=== PATIENT | male | born 1990 | race Caucasian/White ===

== ENCOUNTER → 2020-08-16 12:38 | Outpatient (BNVA) | payer OTHER, SELFPAY | PROVIDERS: Family Provider Family Medicine; Visit Provider Nurse Practitioner | DX: N34.2 Other urethritis (principal) | CPT/HCPCS: 81000; 87491; 87591 ==

== ENCOUNTER → 2022-02-11 10:49 | Outpatient (BNVA) | payer OTHER, SELFPAY | PROVIDERS: Family Provider Family Medicine; PCP Family Medicine; Visit Provider Family Medicine | DX: Z00.00 Encounter for general adult medical examination without abnormal findings (principal); Z51.81 Encounter for therapeutic drug level monitoring; Z13.220 Encounter for screening for lipoid disorders | CPT/HCPCS: 80053; 80061; 85025 ==

== ENCOUNTER → 2022-02-13 14:49 | Outpatient (BNVA) | payer OTHER, SELFPAY | PROVIDERS: Family Provider Family Medicine; PCP Family Medicine; Visit Provider Emergency Medicine | DX: K92.1 Melena (principal) | CPT/HCPCS: 82270; G0328 ==

== ENCOUNTER 2022-03-08 06:14 | Day surgery (SDC) | payer OTHER, SELFPAY ==
[2022-03-06 13:13] VITALS: BMI 25.9
[2022-03-08] MEDS: sodium chloride 0.9% 1,000 ML 30 ML IV (06:37)
[2022-03-08 06:41] VITALS: BP 138/88; PULSE 66; RESP 18; TEMP 36.3; O2SAT 97
--- NOTE | 2022-03-08 07:05 | ANES.PREANE2 ---
Pre-Anesthetic Assessment Height/Weight: Height 1.85 m Weight 89.358 kg Temp Pulse Resp BP Pulse Ox O2 Del Method 97.3 F L 66 18 138/88 97 03/08/22 06:41 03/08/22 06:41 03/08/22 06:41 03/08/22 06:41 03/08/22 06:41 03/08/22 06:41 Preop Diagnosis: Abd pain Operation Date: 03/08/22 07:30 Proposed Procedures p 68668 EGD 25799 Colon R10.9,K52.9(Not Applicable) - Wyatt Mcnair DO s Colonoscopy(Not Applicable) - Wyatt Mcnair DO Was Beta Shaun taken within 24 hours: N/A Was Clonidine taken within 24 hours: N/A Last intake: Intake Last Liquid Date 03/07/22 Last Liquid Time 22:00 Last Solid Date 03/06/22 Social No alcohol Vaps Exam alert, oriented x 3, clear to auscultation bilaterally and regular rate & rhythm Airway Submandibular: within normal limits Cervical ROM: within normal limits Mallampati: Class II Dentition: full History/ROS No significant history except as noted and No significant complaints Pulmonary None reported CV/HEM None reported None reported Hepatic None reported GI None reported Metabolic None reported Musc/skel None reported Neuropsych Anxiety Anesthetic Plan ASA status: 2 Anesthesia: Anesthesia Evaluation and MAC Risk of > 500 ml blood loss (7ml/kg in children): No Medications/Allergies Home Medications Medication Instructions Recorded Confirmed Last Taken Type No Known Home Medications 03/07/22 03/07/22 Unknown History Allergies Allergy/AdvReac Type Severity Reaction Status Date / Time No Known Allergies Allergy Verified 03/08/22 06:35 Current Medications Generic Name Dose Route Start Last Admin Trade Name Freq PRN Reason Stop Dose Admin Sodium Chloride 1,000 mls @ 30 mls/hr 03/08/22 06:30 03/08/22 06:37 Sodium Chloride 0.9% IV 03/09/22 06:29 30 mls/hr .Q24H MARCELINO Administration PFSH Anesthesia Surgical History H/O knee surgery Meniscus tear Social History Smoking and tobacco status: current every day smoker (Vapes) smokeless tobacco Smokeless tobacco user: other Smokeless tobacco details: Vape Alcohol intake: current Alcohol intake frequency: holidays/special occasions only Current occupation: [employer] Data Anesthesia Cardiac Studies: No Data to Display
--- NOTE | 2022-03-08 07:35 | W.PM.OPSUD ---
Surgery/Procedure H&P Update DATE OF PROCEDURE: March 08, 2022 DATE H&P PERFORMED: 02/19/22 PREOP DIAGNOSIS: Abd pain PLANNED PROCEDURE: Operation Date: 03/08/22 07:30 Proposed Procedures p 11773 EGD 26428 Colon R10.9,K52.9(Not Applicable) - DO meeta Morales Colonoscopy(Not Applicable) - Wyatt Mcnair DO
[2022-03-08 08:07] VITALS: BP 96/53; PULSE 68; RESP 16; TEMP 36.2; O2SAT 94
[2022-03-08 08:21] VITALS: BP 127/79; PULSE 72; RESP 16; O2SAT 96
--- NOTE | 2022-03-08 14:18 | ANE.PACU2 ---
Inpatient post-anesthesia follow up: Airway intact: Yes Vital signs: Temperature 97.1 F Pulse Rate 72 Respiratory Rate 16 Blood Pressure 127/79 Pulse Oximetry 96 Oxygen Delivery Me thod Room Air Oxygen Flow Rate Fraction of Inspir ed Oxygen Hydration adequate: Yes Nausea and vomiting: No Pain level: 1 Mental status: Baseline
== END 2022-03-08 08:40 | disposition home or self-care (01) ==
PROVIDERS: PCP Family Medicine; Visit Provider Surgery
PROC: 0DJ08ZZ Inspection of Upper Intestinal Tract, Via Natural or Artificial Opening Endoscopic (ICD-10-PCS; CPT 43235; principal; 2022-03-08 07:30)
PROC: 0DJD8ZZ Inspection of Lower Intestinal Tract, Via Natural or Artificial Opening Endoscopic (ICD-10-PCS; CPT 45378; 2022-03-08 07:30)
DX: K52.9 Noninfective gastroenteritis and colitis, unspecified (principal); R10.9 Unspecified abdominal pain; K29.80 Duodenitis without bleeding; K29.50 Unspecified chronic gastritis without bleeding; B96.81 Helicobacter pylori [H. pylori] as the cause of diseases classified elsewhere; F17.210 Nicotine dependence, cigarettes, uncomplicated
CPT/HCPCS: 43239; 45380; 82274; 83630; 87493; 87506; 88305; 88342; J2704; J7030

== ENCOUNTER → 2022-06-28 09:53 | Outpatient (BNVA) | payer OTHER, SELFPAY | PROVIDERS: PCP Family Medicine; Visit Provider Family Medicine | DX: Z00.00 Encounter for general adult medical examination without abnormal findings (principal); D17.9 Benign lipomatous neoplasm, unspecified; K52.9 Noninfective gastroenteritis and colitis, unspecified; R10.9 Unspecified abdominal pain | CPT/HCPCS: 80053; 83690; 85025; 86140 ==

== ENCOUNTER 2022-09-15 05:49 | Emergency (ER) | payer OTHER, SELFPAY ==
[2022-09-15 06:01] VITALS: BP 127/90; PULSE 61; RESP 16; TEMP 36.4; O2SAT 100; BMI 25.7
[2022-09-15] MEDS: lidocaine 2% viscous 15 ML, aluminum-mag hydrox-simethicon 30 ML, sucralfate oral liq 1 GM PO (06:23)
--- NOTE | 2022-09-15 06:34 | USR_ITS ---
PROCEDURE INFORMATION: Exam: US Abdomen, Limited; Right Upper Quadrant Exam date and time: 09/15/2022 6:40 AM Age: 32 years old Clinical indication: Abdominal pain; Acute TECHNIQUE: Imaging protocol: Real time ultrasound of the abdomen with image documentation. Limited exam focused on the right upper quadrant. COMPARISON: No relevant prior studies available. FINDINGS: Liver: Unremarkable liver, no focal abnormality. Gallbladder: There are several shadowing gallstones within the gallbladder. Mild gallbladder wall thickening, measuring up to 3.8 mm. No pericholecystic fluid. The gallbladder does not appear abnormally distended at this time. Biliary ducts: No biliary dilation, common duct measures 3.5 mm. Pancreas: Visible pancreas unremarkable. Right kidney: Images of the right kidney show no hydronephrosis. US/US gall bladder 20483 IMPRESSION: 1. Cholelithiasis, see additional details above. 2. No biliary tree dilation. 3. Other findings discussed above.
[2022-09-15 06:38] LABS: Basophils % 0.5 %; Eosinophils # 0.1 10^3/uL (0.0-0.8); Eosinophils % 1.2 %; Hematocrit 44.1 % (42.0-52.0); Hemoglobin 14.4 g/dL (11.7-16.6); Lymphocytes # 1.9 10^3/uL (0.8-4.8); Mean Corpuscular HGB Conc 32.7 g/dL (30.0-36.0); Mean Corpuscular Hemoglobin 29.2 pg (28.0-34.0); Mean Corpuscular Volume 89.5 fl (80-94); Mean Platelet Volume 9.8 fL (7.4-10.4); Monocytes # 0.7 10^3/uL (0.2-0.9); Monocytes % 8.2 %; Neutrophils # 5.53 10^3/uL (1.8-7.7); Neutrophils % 66.9 %; Nucleated Red Blood Cells % 0 %; Platelet Count 235 10^3/cmm (130-400); Red Blood Count 4.93 10^6/uL (4.1-5.3); Red Cell Distribution Width 12.8 % (12.1-15.1); White Blood Count 8.3 10^3/uL (4.0-10.0)
--- NOTE | 2022-09-15 06:42 | W.ED.ABDPA2 ---
HPI - Abdominal Pain General: Chief Complaint: Abdominal Pain Stated Complaint: abdomen pain Time Seen by Provider: 09/15/22 05:58 Source: patient Mode of arrival: ambulatory Limitations: no limitations History of Present Illness: 32-year-old male states that he has been having epigastric and right upper abdominal pain throughout the night. He states pain is been sharp in nature and he rates it a 7 out of 10 currently has had no nausea vomiting or diarrhea. Denies any fevers he denies any worsening improving factors. Associated Symptoms: Denies chills, dysuria, fever(s), nausea and vomiting Review of Systems Const: Denies: fever(s), chills, body aches or change in appetite ENMT: Denies: throat pain or dental pain Card: Denies: chest pain Resp: Denies: dyspnea GI: Reports: abdominal pain; Denies: nausea or vomiting : Denies: dysuria Musc: Denies: neck pain or back pain Skin/Breast: Denies: rash Neuro: Denies: headache(s) PFSH ED PFSH: Medical History Helicobacter pylori gastritis Surgical History H/O knee surgery Meniscus tear Social History Smoking and tobacco status: current every day smoker (Vapes) smokeless tobacco Smokeless tobacco user: chewing tobacco Alcohol intake: current Alcohol intake frequency: holidays/special occasions only Substance/Drug Use: never Current occupation: [employer] Physical Exam Const: COMMON NORMALS: no acute distress, patient oriented x3 and healthy appearing HENMT: COMMON NORMALS: normocephalic and atraumatic HEAD & SCALP: normocephalic and atraumatic Eye: COMMON NORMALS: conjunctivae normal CONJUNCTIVA: Yes conjunctivae normal Neck/C-Spine: COMMON NORMALS: full ROM and supple Chest: COMMONS NORMALS: normal inspection of the chest and normal palpation of entire chest wall Resp: COMMON NORMALS: normal respiratory effort, No retractions, No use of accessory muscles and clear to auscultation bilaterally AUSCULTATION: clear to auscultation bilaterally Cardio: COMMON NORMALS: regular rate, regular rhythm and No murmurs present (Cardio) RATE: regular rate RHYTHM: regular rhythm GI: COMMON NORMALS: Normal to inspection, nondistended, normoactive bowel sounds present, Soft to palpation and no masses PALPATION: Yes Soft to palpation and Yes Tenderness to palpation present (GI) Details: RUQ Extremity: COMMON NORMALS: normal to inspection and full ROM Neuro: COMMON NORMALS: patient oriented x3, moves all extremities and no focal motor deficits Psych: COMMON NORMALS: mental status grossly normal, Normal thought process present and cooperative THOUGHT PROCESS: Normal thought process present Skin: COMMON NORMALS: no rashes or lesions noted and no wounds GENERAL SKIN EXAM: no rashes or lesions noted Course Vital Signs: Vital signs: Vital Signs Temperature 97.6 F 09/15/22 06:01 Pulse Rate 66 09/15/22 06:44 Respiratory Rate 16 09/15/22 06:44 Blood Pressure 127/90 09/15/22 06:44 Pulse Oximetry 99 09/15/22 06:44 MDM - Abdominal Pain Medical Decision Making Patient presents with abdominal pain it was resolved here with GI cocktail he is currently pain-free has no tenderness on exam at discharge he does have gallstones likely biliary colic no signs of cholecystitis placed on pain meds we will get him follow-up with surgery he is return if worsening he understands agrees to plan. Differential Diagnosis Likely abdominal pain; Unlikely acute appendicitis, constipation, diverticulitis, pancreatitis or small bowel obstruction Lab Data 09/15/22 06:17 09/15/22 06:17 Labs/Radiology: Laboratory Results WBC 8.3 10^3/uL (4.0-10.0) 09/15/22 06:17 RBC 4.93 10^6/uL (4.1-5.3) 09/15/22 06:17 Hgb 14.4 g/dL (11.7-16.6) 09/15/22 06:17 Hct 44.1 % (42.0-52.0) 09/15/22 06:17 MCV 89.5 fl (80-94) 09/15/22 06:17 MCH 29.2 pg (28.0-34.0) 09/15/22 06:17 MCHC 32.7 g/dL (30.0-36.0) 09/15/22 06:17 RDW 12.8 % (12.1-15.1) 09/15/22 06:17 Plt Count 235 10^3/cmm (130-400) 09/15/22 06:17 MPV 9.8 fL (7.4-10.4) 09/15/22 06:17 Neut % (Auto) 66.9 % 09/15/22 06:17 Lymph % (Auto) 23.0 % 09/15/22 06:17 [place] % (Auto) 8.2 % 09/15/22 06:17 Eos % (Auto) 1.2 % 09/15/22 06:17 Baso % (Auto) 0.5 % 09/15/22 06:17 Neut # (Auto) 5.53 10^3/uL (1.8-7.7) 09/15/22 06:17 Lymph # (Auto) 1.9 10^3/uL (0.8-4.8) 09/15/22 06:17 [place] # (Auto) 0.7 10^3/uL (0.2-0.9) 09/15/22 06:17 Eos # (Auto) 0.1 10^3/uL (0.0-0.8) 09/15/22 06:17 Baso # (Auto) 0.0 10^3/uL (0.0-0.1) 09/15/22 06:17 Nucleated RBC % (auto) 0 % 09/15/22 06:17 Nucleated RBCs # 0.0 /100WBC 09/15/22 06:17 Sodium 140 mmol/L (136-145) 09/15/22 06:17 Potassium 3.8 mmol/L (3.5-5.1) 09/15/22 06:17 Chloride 104 mmol/L (98-107) 09/15/22 06:17 Carbon Dioxide 25 mmol/L (22-29) 09/15/22 06:17 Anion Gap 14.8 (5-19) 09/15/22 06:17 BUN 16 mg/dL (6-20) 09/15/22 06:17 Creatinine 0.9 mg/dL (0.7-1.2) 09/15/22 06:17 GFR Calculation 96.6 mL/min (90-130) 09/15/22 06:17 Glucose 103 mg/dL (65-115) 09/15/22 06:17 Calculated Osmolality 291 mOsm/kg (285-295) 09/15/22 06:17 Calcium 9.2 mg/dL (8.5-10.5) 09/15/22 06:17 Total Bilirubin 0.4 mg/dL (0.15-1.2) 09/15/22 06:17 AST 23 U/L (0-40) 09/15/22 06:17 ALT 18 U/L (0-41) 09/15/22 06:17 Alkaline Phosphatase 71 U/L (40-130) 09/15/22 06:17 Total Protein 7.4 g/dL (6.6-8.7) 09/15/22 06:17 Albumin 4.5 g/dL (3.5-5.2) 09/15/22 06:17 Globulin 2.9 g/dL (1.3-4.6) 09/15/22 06:17 Lipase 37 U/L (13-60) 09/15/22 06:17 Urine Color Yellow (Yellow) 09/15/22 06:26 Urine Appearance Clear (CLEAR) 09/15/22 06:26 Urine pH 5 (5-7) 09/15/22 06:26 Ur Specific [place] 1.030 (1.005-1.030) 09/15/22 06:26 Urine Protein Neg (Negative) 09/15/22 06:26 Urine Glucose (UA) Norm (Normal) 09/15/22 06:26 Urine Ketones Negative (Negative) 09/15/22 06:26 Urine Blood Neg (Negative) 09/15/22 06:26 Urine Nitrate Negative (Negative) 09/15/22 06:26 Urine Bilirubin Neg (Negative) 09/15/22 06:26 Urine Urobilinogen Norm mg/dL (Negative) 09/15/22 06:26 Ur Leukocyte Esterase Negative (Negative) 09/15/22 06:26 Discharge Plan Discharge Patient Disposition: Home Clinical Impression: Abdominal pain, Gallstones Condition: Stable Prescriptions: New hydrocodone-acetaminophen 5-325 mg tablet 1 tab PO Q6H PRN (Reason: pain) Qty: 14 0RF ondansetron 4 mg tablet,disintegrating 4 mg PO Q6H PRN (Reason: nausea and vomiting) Qty: 14 0RF No Action omeprazole 20 mg capsule,delayed release(DR/EC) 20 mg PO DAILY Discharge Orders: Discharge ED (Routine); Ordered 09/15/22 Ordered By: Tim Hampton Referrals: Wyatt Mcnair DO [Physician] - 1-3 days Demetrio Devine MD [Primary Care Provider] - Discharge Diet: Advance as tolerated Discharge Activity: Resume usual activity Patient Instructions: Gallstones (ED), Abdominal Pain (ED), Opioid Safety Coding Level of Care Code ED Professor Of Biostatistics for Isabella Gruber
[2022-09-15 06:44] VITALS: BP 127/90; PULSE 66; RESP 16; O2SAT 99
[2022-09-15 06:53] LABS: Alanine Aminotransferase 18 U/L (0-41); Albumin Level 4.5 g/dL (3.5-5.2); Alkaline Phosphatase 71 U/L (40-130); Anion Gap 14.8 (5-19); Aspartate Amino Transferase 23 U/L (0-40); Blood Urea Nitrogen 16 mg/dL (6-20); Calcium 9.2 mg/dL (8.5-10.5); Carbon Dioxide 25 mmol/L (22-29); Chloride 104 mmol/L (98-107); Globulin 2.9 g/dL (1.3-4.6); Glomerular Filtration Rate 96.6 mL/min (90-130); Glucose 103 mg/dL (65-115); Lipase 37 U/L (13-60); Osmolality Calculated 291 mOsm/kg (285-295); Potassium 3.8 mmol/L (3.5-5.1); Sodium 140 mmol/L (136-145); Total Bilirubin 0.4 mg/dL (0.15-1.2); Total Protein 7.4 g/dL (6.6-8.7)
[2022-09-15 06:58] LABS: Add Urine Microscopic? NO; Charge for UA Resulting for Rev
[2022-09-15 07:02] LABS: Urine Appearance Clear (CLEAR); Urine Color Yellow (Yellow)
[2022-09-15 07:03] LABS: Bilirubin Urine Neg (Negative); Blood Urine Neg (Negative); Glucose Urine UA Norm (Normal); Ketones Urine Negative (Negative); Leukocyte Esterase Urine Negative (Negative); Nitrate Urine Negative (Negative); Protein Urine Neg (Negative); Urobilinogen Urine Norm (Negative); pH Urine 5 (5-7)
--- NOTE | 2022-09-16 10:15 | DCPLANNER ---
Addendum entered by Astrid Lazaro 10/18/22 08:38: Patient had a follow up appointment scheduled with general surgery - patient did attend appointment. Addendum entered by Astrid Lazaro 09/19/22 10:48: Patient has a follow up appointment scheduled for Saturday, October 15, 2022 at 1:[address] Mcnair at general surgery. Original Note: community marketing manager had message to schedule a follow up appointment for patient with general surgery. community marketing manager sent patients information to the front office staff at general surgery. Patients information will be printed and reviewed. Clinic will call patient with appointment information.
== END 2022-09-15 07:28 | disposition home or self-care (01) ==
PROVIDERS: Emergency Provider Emergency Medicine; PCP Family Medicine
DX: K80.20 Calculus of gallbladder without cholecystitis without obstruction (principal); F17.220 Nicotine dependence, chewing tobacco, uncomplicated; F17.290 Nicotine dependence, other tobacco product, uncomplicated
CPT/HCPCS: 76705; 80053; 81003; 83690; 85025; 99284

== ENCOUNTER 2022-10-14 04:13 | Emergency (ER) | payer OTHER, SELFPAY ==
[2022-10-14 04:21] VITALS: BMI 25.7
[2022-10-14 04:23] VITALS: BP 138/75; PULSE 71; RESP 16; TEMP 37.1; O2SAT 99
--- NOTE | 2022-10-14 04:31 | W.ED.ABDPA2 ---
HPI - Abdominal Pain General: Chief Complaint: Abdominal Pain Stated Complaint: abd pain Time Seen by Provider: 10/14/22 04:15 Source: patient Mode of arrival: ambulatory Limitations: no limitations History of Present Illness: 32-year-old male states been having abdominal pain over the last 3 weeks has been intermittent nature was seen here 3 weeks ago diagnosed with gallstones he is due to see Dr. Mcnair of surgery on Friday states that tonight he started having worsening pain start around 3 states pain is sharp in nature rates an 8 out of 10 his hydrocodone at home was not taken away the pain he had some nausea denies any vomiting denies any fevers. Associated Symptoms: Reports nausea; Denies chills, diarrhea, fever(s) and vomiting Review of Systems Const: Denies: fever(s), chills, body aches or change in appetite ENMT: Denies: throat pain or dental pain Card: Denies: chest pain Resp: Denies: dyspnea GI: Reports: abdominal pain and nausea; Denies: vomiting or diarrhea Musc: Denies: neck pain or back pain Skin/Breast: Denies: rash Neuro: Denies: headache(s) PFSH ED PFSH: Medical History Helicobacter pylori gastritis Surgical History H/O knee surgery Meniscus tear Social History Smoking and tobacco status: current every day smoker (Vapes) smokeless tobacco Smokeless tobacco user: chewing tobacco Alcohol intake: current Alcohol intake frequency: holidays/special occasions only Substance/Drug Use: never Current occupation: [employer] Physical Exam Const: COMMON NORMALS: no acute distress, patient oriented x3 and healthy appearing HENMT: COMMON NORMALS: normocephalic and atraumatic HEAD & SCALP: normocephalic and atraumatic Neck/C-Spine: COMMON NORMALS: full ROM and supple Chest: COMMONS NORMALS: normal inspection of the chest and normal palpation of entire chest wall Resp: COMMON NORMALS: normal respiratory effort, No retractions, No use of accessory muscles and clear to auscultation bilaterally AUSCULTATION: clear to auscultation bilaterally Cardio: COMMON NORMALS: regular rate, regular rhythm and No murmurs present (Cardio) RATE: regular rate RHYTHM: regular rhythm GI: COMMON NORMALS: Normal to inspection, nondistended, normoactive bowel sounds present, Soft to palpation and no masses PALPATION: Yes Soft to palpation and Yes Tenderness to palpation present (GI) Details: RUQ Extremity: COMMON NORMALS: normal to inspection and full ROM Neuro: COMMON NORMALS: patient oriented x3, moves all extremities and no focal motor deficits Psych: COMMON NORMALS: mental status grossly normal, Normal thought process present and cooperative THOUGHT PROCESS: Normal thought process present Skin: COMMON NORMALS: no rashes or lesions noted and no wounds GENERAL SKIN EXAM: no rashes or lesions noted Course Vital Signs: Vital signs: Vital Signs Temperature 98.8 F 10/14/22 04:23 Pulse Rate 55 L 10/14/22 05:23 Respiratory Rate 16 10/14/22 05:23 Blood Pressure 104/50 10/14/22 05:23 Pulse Oximetry 99 10/14/22 05:23 Oxygen Delivery Me thod Room Air 10/14/22 04:53 MDM - Abdominal Pain Medical Decision Making Patient presents with right upper quadrant pain is likely biliary colic white count here is normal no signs of cholecystitis pain here has improved we will place him on antibiotics he has pain meds at home he has follow-up with surgery on Friday he is to follow-up as scheduled return if worsening. Lab Data 10/14/22 04:29 10/14/22 04:29 Labs/Radiology: Laboratory Results WBC 9.1 10^3/uL (4.0-10.0) 10/14/22 04:29 RBC 5.09 10^6/uL (4.1-5.3) 10/14/22 04:29 Hgb 14.8 g/dL (11.7-16.6) 10/14/22 04:29 Hct 46.2 % (42.0-52.0) 10/14/22 04:29 MCV 90.8 fl (80-94) 10/14/22 04:29 MCH 29.1 pg (28.0-34.0) 10/14/22 04:29 MCHC 32.0 g/dL (30.0-36.0) 10/14/22 04:29 RDW 12.7 % (12.1-15.1) 10/14/22 04:29 Plt Count 247 10^3/cmm (130-400) 10/14/22 04:29 MPV 9.6 fL (7.4-10.4) 10/14/22 04:29 Neut % (Auto) 47.5 % 10/14/22 04:29 Lymph % (Auto) 40.9 % 10/14/22 04:29 [place] % (Auto) 7.9 % 10/14/22 04:29 Eos % (Auto) 3.1 % 10/14/22 04:29 Baso % (Auto) 0.4 % 10/14/22 04:29 Neut # (Auto) 4.32 10^3/uL (1.8-7.7) 10/14/22 04:29 Lymph # (Auto) 3.7 10^3/uL (0.8-4.8) 10/14/22 04:29 [place] # (Auto) 0.7 10^3/uL (0.2-0.9) 10/14/22 04:29 Eos # (Auto) 0.3 10^3/uL (0.0-0.8) 10/14/22 04:29 Baso # (Auto) 0.0 10^3/uL (0.0-0.1) 10/14/22 04:29 Nucleated RBC % (auto) 0 % 10/14/22 04:29 Nucleated RBCs # 0.0 /100WBC 10/14/22 04:29 Sodium 139 mmol/L (136-145) 10/14/22 04:29 Potassium 4.0 mmol/L (3.5-5.1) 10/14/22 04:29 Chloride 103 mmol/L (98-107) 10/14/22 04:29 Carbon Dioxide 25 mmol/L (22-29) 10/14/22 04:29 Anion Gap 15.0 (5-19) 10/14/22 04:29 BUN 13 mg/dL (6-20) 10/14/22 04:29 Creatinine 0.8 mg/dL (0.7-1.2) 10/14/22 04:29 GFR Calculation 110.7 mL/min (90-130) 10/14/22 04:29 Glucose 102 mg/dL (65-115) 10/14/22 04:29 Calculated Osmolality 288 mOsm/kg (285-295) 10/14/22 04:29 Calcium 9.1 mg/dL (8.5-10.5) 10/14/22 04:29 Total Bilirubin 0.3 mg/dL (0.15-1.2) 10/14/22 04:29 AST 17 U/L (0-40) 10/14/22 04:29 ALT 13 U/L (0-41) 10/14/22 04:29 Alkaline Phosphatase 74 U/L (40-130) 10/14/22 04:29 Total Protein 7.2 g/dL (6.6-8.7) 10/14/22 04:29 Albumin 4.3 g/dL (3.5-5.2) 10/14/22 04:29 Globulin 2.9 g/dL (1.3-4.6) 10/14/22 04:29 Lipase 40 U/L (13-60) 10/14/22 04:29 Discharge Plan Discharge Patient Disposition: Home Clinical Impression: Abdominal pain, Cholelithiasis Condition: Stable Prescriptions: New Cipro 500 mg tablet 500 mg PO BID Qty: 14 0RF No Action omeprazole 20 mg capsule,delayed release(DR/EC) 20 mg PO DAILY hydrocodone-acetaminophen 5-325 mg tablet 1 tab PO Q6H PRN (Reason: pain) Qty: 14 0RF ondansetron 4 mg tablet,disintegrating 4 mg PO Q6H PRN (Reason: nausea and vomiting) Qty: 14 0RF Discharge Orders: Discharge ED (Routine); Ordered 10/14/22 Ordered By: Tim Hampton Referrals: Wyatt Mcnair DO [Physician] - 1-3 days Demetrio Devine MD [Primary Care Provider] - Discharge Diet: Advance as tolerated Discharge Activity: Resume usual activity Patient Instructions: Abdominal Pain (ED), Opioid Safety Coding Level of Care Code ED Environmental Field Office Manager for Isabella Gruber
[2022-10-14 04:32] VITALS: RESP 18
[2022-10-14] MEDS: HYDROmorphone 1 mg/mL INJ 1 mL IVP ×2 (04:32→05:22)
[2022-10-14 04:33] LABS: Basophils % 0.4 %; Eosinophils # 0.3 10^3/uL (0.0-0.8); Eosinophils % 3.1 %; Hematocrit 46.2 % (42.0-52.0); Hemoglobin 14.8 g/dL (11.7-16.6); Lymphocytes # 3.7 10^3/uL (0.8-4.8); Lymphocytes % 40.9 %; Mean Corpuscular Hemoglobin 29.1 pg (28.0-34.0); Mean Corpuscular Volume 90.8 fl (80-94); Mean Platelet Volume 9.6 fL (7.4-10.4); Monocytes # 0.7 10^3/uL (0.2-0.9); Monocytes % 7.9 %; Neutrophils # 4.32 10^3/uL (1.8-7.7); Neutrophils % 47.5 %; Nucleated Red Blood Cells % 0 %; Platelet Count 247 10^3/cmm (130-400); Red Blood Count 5.09 10^6/uL (4.1-5.3); Red Cell Distribution Width 12.7 % (12.1-15.1); White Blood Count 9.1 10^3/uL (4.0-10.0)
[2022-10-14] MEDS: ondansetron 2 mg/ML SDV 2 mL 4 MG IVP (04:34)
[2022-10-14 04:53] VITALS: BP 102/45; PULSE 56; RESP 14; O2SAT 98
[2022-10-14 04:53] LABS: Alanine Aminotransferase 13 U/L (0-41); Albumin Level 4.3 g/dL (3.5-5.2); Alkaline Phosphatase 74 U/L (40-130); Aspartate Amino Transferase 17 U/L (0-40); Blood Urea Nitrogen 13 mg/dL (6-20); Calcium 9.1 mg/dL (8.5-10.5); Carbon Dioxide 25 mmol/L (22-29); Chloride 103 mmol/L (98-107); Globulin 2.9 g/dL (1.3-4.6); Glomerular Filtration Rate 110.7 mL/min (90-130); Glucose 102 mg/dL (65-115); Lipase 40 U/L (13-60); Osmolality Calculated 288 mOsm/kg (285-295); Sodium 139 mmol/L (136-145); Total Bilirubin 0.3 mg/dL (0.15-1.2); Total Protein 7.2 g/dL (6.6-8.7)
[2022-10-14] MEDS: lidocaine 2% viscous 15 ML, aluminum-mag hydrox-simethicon 30 ML, sucralfate oral liq 1 GM PO (05:01)
[2022-10-14 05:22] VITALS: RESP 16; O2SAT 98
[2022-10-14 05:23] VITALS: BP 104/50; PULSE 55; RESP 16; O2SAT 99
[2022-10-14 05:27] VITALS: BP 100/62; PULSE 50; RESP 16; O2SAT 97
== END 2022-10-14 05:45 | disposition home or self-care (01) ==
PROVIDERS: Emergency Provider Emergency Medicine; PCP Family Medicine
DX: K80.20 Calculus of gallbladder without cholecystitis without obstruction (principal); F17.290 Nicotine dependence, other tobacco product, uncomplicated; F17.220 Nicotine dependence, chewing tobacco, uncomplicated
CPT/HCPCS: 80053; 83690; 85025; 96374; 96375; 96376; 99284; J1170; J2405

== ENCOUNTER 2022-10-17 11:28 | Day surgery (SDC) | payer OTHER, SELFPAY ==
[2022-10-16 16:11] VITALS: BMI 25.3
[2022-10-17] VITALS (12 sets, daily range): BP systolic 124–155; BP diastolic 58–102; PULSE 49–88; RESP 16–18; TEMP 36.1–36.4; O2SAT 94–99
[2022-10-17] MEDS: sodium chloride 0.9% 1,000 ML 30 ML IV (12:03)
--- NOTE | 2022-10-17 13:03 | W.PM.OPSUD ---
Surgery/Procedure H&P Update DATE OF PROCEDURE: October 17, 2022 DATE H&P PERFORMED: 10/16/22 H&P UPDATE INFORMATION: I have reviewed H&P completed within last 30 days, I have examined patient prior to procedure and No changes to prior documentation PLANNED PROCEDURE: Operation Date: 10/17/22 13:10 Proposed Procedures p 82831 lap laly K80.20(Not Applicable) - Wyatt Mcnair DO
[2022-10-17] MEDS: ceFAZolin 2,000 MG in sodium chloride 0.9% (plus) 50 ML 100 MG IV (13:29)
--- NOTE | 2022-10-17 13:51 | PM.OP ---
Operative Report Date of procedure: October 17, 2022 Pre-op diagnosis: Symptomatic cholelithiasis Post-op diagnosis: same Procedure done: Laparoscopic cholecystectomy Implants: None Specimens removed/disposition: Gallbladder Surgeon: Dr. Wyatt Mcnair DO Anesthesia: General Estimated blood loss (mL): 5 Complications: None apparent Brief History: The very pleasant 32-year-old gentleman who was diagnosed with symptomatic cholelithiasis. Laparoscopic cholecystectomy was indicated. The risk and benefits were explained and documented. Procedure: Patient was wheeled into the operative room and placed on the OR table in a supine position. Abdomen was inspected prepped and draped in usual sterile fashion. Time-out was performed and all present were in agreement. A 15 blade scalp was used to make a stab incision in the left upper quadrant and intra-abdominal insufflation was achieved using a Veress needle. After localizing the tissue incisions were made and a 5 millimeter trocar was placed into the umbilicus as well as 2 in the right upper quadrant. A 12 millimeter trocar was placed in the epigastrium. Gallbladder was grasped and elevated. The triangle of Calot was carefully dissected using blunt dissection and electrocautery until the triangle of Calot clearly identified. The cystic duct was clipped proximally and double clipped distally. The duct was then ligated proximally. The cystic artery was doubly clipped and ligated. The gallbladder was then removed from the liver bed using electrocautery. The gallbladder was removed from the abdomen using an Endo-Catch bag through the epigastric incision. The liver bed was inspected and no bleeding was seen. The abdomen was irrigated and suctioned. All ports removed. Skin was washed and dried. Incisions were closed with 3-0 and 4-0 Monocryl in a subcuticular interrupted fashion. Skin glue was applied. Patient tolerated the procedure well.
[2022-10-17] MEDS: lidocaine-epi 2% 20 mL INJ 6 ML INJECTION (14:12)
[2022-10-17] MEDS: fentaNYL 50 mcg/mL INJ 2mL IVP (14:32)
[2022-10-17] MEDS: HYDROcodone-acetaminophen 5-325 mg Tablet 1 TAB PO (15:13)
[2022-10-17] MEDS: HYDROmorphone 1 mg/mL INJ 1 mL 0.5 MG IVP (15:41)
--- NOTE | 2022-10-17 15:41 | ANES.PREANE2 ---
Pre-Anesthetic Assessment Height/Weight: Height 1.85 m Weight 87.09 kg Temp Pulse Resp BP Pulse Ox O2 Del Method O2 Flow Rate 97.1 F L 56 L 18 139/92 98 Room Air 8 10/17/22 14:50 10/17/22 15:15 10/17/22 15:15 10/17/22 15:15 10/17/22 15:15 10/17/22 15:15 10/17/22 14:22 Operation Date: 10/17/22 13:10 Proposed Procedures p 43546 lap laly K80.20(Not Applicable) - DO Ike Morales anesthetic complications: none Was Beta Shaun taken within 24 hours: N/A Was Clonidine taken within 24 hours: N/A Last intake: Intake Last Liquid Date 10/16/22 Last Liquid Time 23:50 Last Solid Date 10/16/22 Last Solid Time 22:30 Social Tobacco (chews) and No alcohol Exam alert, oriented x 3, clear to auscultation bilaterally and regular rate & rhythm Airway Submandibular: within normal limits Cervical ROM: within normal limits Mallampati: Class II Dentition: full Comments: Comments: [facility] Gastroesophageal Reflux Disease Anesthetic Plan ASA status: 2 Anesthesia: General Medications/Allergies Home Medications Medication Instructions Recorded Confirmed Last Taken Type hydrocodone 5 mg-acetaminophen 325 1 tab PO Q6H PRN pain #14 tabs 09/15/22 10/16/22 10/15/22 Rx mg tablet ondansetron 4 mg disintegrating 4 mg PO Q6H PRN nausea and 09/15/22 10/17/22 Unknown Rx tablet vomiting #14 tabs ciprofloxacin HCl 500 mg tablet 500 mg PO BID #14 tabs 10/14/22 10/16/22 10/16/22 Rx (Cipro) omeprazole 20 mg capsule,delayed 20 mg PO DAILY 10/16/22 10/16/22 10/16/22 History release docusate sodium 100 mg capsule 100 mg PO BID #14 caps 10/17/22 Unknown Rx (DOK) hydrocodone 5 mg-acetaminophen 325 1 tab PO Q6H PRN pain #20 tabs 10/17/22 Unknown Rx mg tablet Allergies Allergy/AdvReac Type Severity Reaction Status Date / Time No Known Allergies Allergy Verified 10/16/22 13:59 Current Medications Generic Name Dose Route Start Last Admin Trade Name Freq PRN Reason Stop Dose Admin Fentanyl 50 mcg 10/17/22 14:34 10/17/22 14:32 Fentanyl 50 Mcg/Ml Inj 2ml IVP 10/18/22 14:34 50 mcg Q5M PRN Administration Pain level 1-5 PACU Phase I Sodium Chloride 1,000 mls @ 30 mls/hr 10/17/22 11:45 10/17/22 12:03 Sodium Chloride 0.9% IV 10/18/22 11:44 30 mls/hr .Q24H MARCELINO Administration PFSH Anesthesia Medical History (Updated 10/17/22 @ 13:02 by Wyatt Mcnair DO) Helicobacter pylori gastritis Surgical History (Updated 10/17/22 @ 13:02 by Wyatt Mcnair DO) H/O knee surgery Meniscus tear History of esophagogastroduodenoscopy (EGD) Hx of colonoscopy Social History Smoking and tobacco status: current every day smoker (Vapes) smokeless tobacco Smokeless tobacco user: chewing tobacco Alcohol intake: current Alcohol intake frequency: holidays/special occasions only Substance/Drug Use: never Current occupation: [employer] Data Anesthesia Cardiac Studies: No Data to Display
--- NOTE | 2022-10-17 15:42 | ANE.PACU2 ---
Inpatient post-anesthesia follow up: Airway intact: Yes Vital signs: Temperature 97.1 F Pulse Rate 56 Respiratory Rate 18 Blood Pressure 139/92 Pulse Oximetry 98 Oxygen Delivery Me thod Room Air Oxygen Flow Rate 8 Fraction of Inspir ed Oxygen Hydration adequate: Yes Nausea and vomiting: No Pain level: 3 Mental status: Baseline
== END 2022-10-17 16:18 | disposition home or self-care (01) ==
PROVIDERS: PCP Family Medicine; Visit Provider Surgery
PROC: 0FT44ZZ Resection of Gallbladder, Percutaneous Endoscopic Approach (ICD-10-PCS; CPT 47562; principal; 2022-10-17 12:50)
DX: K80.10 Calculus of gallbladder with chronic cholecystitis without obstruction (principal); K21.9 Gastro-esophageal reflux disease without esophagitis; F17.220 Nicotine dependence, chewing tobacco, uncomplicated
CPT/HCPCS: 47562; 88304; J0330; J0690; J1100; J1170; J2250; J2405; J2704; J2710; J3010; J3490; J7030

== ENCOUNTER → 2023-08-15 13:10 | Outpatient (BNVA) | payer OTHER, SELFPAY | PROVIDERS: PCP Family Medicine; Visit Provider Registered Nurse Neonatal Intensive Care | DX: J02.9 Acute pharyngitis, unspecified (principal) | CPT/HCPCS: 87880 ==

== ENCOUNTER 2024-05-26 12:42 | Outpatient (CLI) | payer BC, SELFPAY ==
--- NOTE | 2024-05-26 12:45 | XR_ITS ---
WS: [id number] Right shoulder, 2 views, 05/26/2024 Clinical Data: Right shoulder pain Comparison: None. Findings: No fractures or dislocations are seen. The AC joint is normal. The adjacent right clavicle, right sca pula and ribs are normal. The soft tissues are unremarkable. XR/XR shoulder RT min 2V* [id number] Impression: Negative right shoulder.
== END 2024-05-26 12:43 | disposition home or self-care (01) ==
LOC: RAD 12:43
PROVIDERS: PCP Family Medicine; Visit Provider Family Medicine
DX: M25.511 Pain in right shoulder (principal)
CPT/HCPCS: 73030

== ENCOUNTER 2024-06-11 13:27 | Outpatient (CLI) | payer BC, SELFPAY ==
--- NOTE | 2024-06-11 13:45 | MR_ITS ---
WS: [id number] MRI RIGHT SHOULDER NONCONTRAST TECHNIQUE: Sagittal T2, coronal T1, T2 and proton density imaging. Axial gradient PDE imaging. CLINICAL INFORMATION: Right shoulder pain COMPARISON: None. FINDINGS: Advanced arthritis AC joint with fluid and edema. Impingement on the distal supraspinatus. Supraspinatus and infraspinatus appear intact. Edema at the AC joint. Small amount of subacromial fluid. Mild chronic thinning of the supraspinatus. Infraspinatus appears intact. Normal teres minor. Normal subsca pularis tendon. Biceps tendon appears intact within the bicipital groove. Intra- articular biceps tendon appears intact. Biceps labral anchor appears intact. No other acute findings. MR/MR shoulder RT wo con* [id number] IMPRESSION: 1. 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 Moder ate downsloping acromion with impingement on the distal supraspinatus. Small am ount of subacromial fluid. Edema in the distal clavicle and acromion. Recommend correlation for synovitis. 2. Rotator cuff is intact. 3. Normal biceps tendon in the bicipital groove. 4. No other acute findings.
== END 2024-06-11 13:28 | disposition home or self-care (01) ==
LOC: RAD 13:28
PROVIDERS: PCP Family Medicine; Visit Provider Orthopaedic Surgery
DX: M25.511 Pain in right shoulder (principal); S43.439A Superior glenoid labrum lesion of unspecified shoulder, initial encounter; S46.219A Strain of muscle, fascia and tendon of other parts of biceps, unspecified arm, initial encounter; M13.811 Other specified arthritis, right shoulder; R93.6 Abnormal findings on diagnostic imaging of limbs; X58.XXXA Exposure to other specified factors, initial encounter
CPT/HCPCS: 73221

== ENCOUNTER → 2024-06-15 09:28 | Outpatient (BNVA) | payer BC, SELFPAY | PROVIDERS: PCP Family Medicine; Visit Provider Orthopaedic Surgery | DX: M24.111 Other articular cartilage disorders, right shoulder (principal); M19.011 Primary osteoarthritis, right shoulder; M25.511 Pain in right shoulder | CPT/HCPCS: 36415; 80053; 81001; 85025 ==

== ENCOUNTER 2024-06-23 05:27 | Day surgery (SDC) | payer BC, SELFPAY ==
[2024-06-23] VITALS (10 sets, daily range): BP systolic 101–118; BP diastolic 56–80; PULSE 60–69; RESP 10–18; TEMP 36.1–36.4; O2SAT 99–100; BMI 25.2
--- NOTE | 2024-06-23 06:37 | W.PM.OPSFHP ---
Same Day Surgery H&P Indication for Procedure/HPI DATE OF PROCEDURE: June 23, 2024 CHIEF COMPLAINT/INDICATIONFOR SURGICAL PROCEDURE: Right shoulder pain PREOP DIAGNOSIS: Shoulder labral tear PLANNED PROCEDURE: Operation Date: 06/23/24 07:00 Proposed Procedures p SHOULDER ARTHROSCOPY WITH LABRAL REPAIR(Right) - Dakota Mercer MD Medications/Allergies* Home Medications ?Medication ?Instructions ?Recorded ?Confirmed ?Type No Known Home Medications 06/22/24 06/22/24 History Allergies/Adverse Reactions Allergy/AdvReac Type Severity Reaction Status Date / Time No Known Allergies Allergy Verified 06/16/24 12:08 Pertinent History/Comorbid Conditions* Medical History (Updated 06/15/24 @ 09:11 by Dakota Mercer MD) Helicobacter pylori gastritis Surgical History (Updated 12/23/23 @ 14:37 by Demetrio Devine MD) Hx of vasectomy Spring 2023 Hx laparoscopic cholecystectomy 10/17/22 History of esophagogastroduodenoscopy (EGD) Hx of colonoscopy H/O knee surgery Meniscus tear Social History Smoking and tobacco/nicotine status: former use of tobacco/nicotine Alcohol intake: current Alcohol intake frequency: holidays/special occasions only Substance/Drug Use: never Current occupation: [employer] Pertinent Exam Findings alert, oriented x 3 and operative site marked Physical exam unchanged since clinic visit Exam unchanged since primary care H&P Recommendations Surgery/Procedure today Coding Level of Care Code Acute Code for Chg Fwd
[2024-06-23] MEDS: sodium chloride 0.9% 1,000 ML 30 ML IV (06:47)
--- NOTE | 2024-06-23 06:54 | ANES.PREANE2 ---
Pre-Anesthetic Assessment Height/Weight: Height 6 ft 1 in Weight 191 lb Temp Pulse Resp BP Pulse Ox O2 Del Method 97.6 F 67 18 117/80 99 Room Air 06/23/24 06:03 06/23/24 06:03 06/23/24 06:03 06/23/24 06:03 06/23/24 06:03 06/23/24 06:06 Preop Diagnosis: Shoulder labral tear Operation Date: 06/23/24 07:00 Proposed Procedures p SHOULDER ARTHROSCOPY WITH LABRAL REPAIR(Right) - Dakota Mercer MD Was Beta Shaun taken within 24 hours: N/A Was Clonidine taken within 24 hours: N/A Last intake: Intake Last Liquid Date 06/22/24 Last Solid Date 06/22/24 Last Solid Time 21:30 Social No alcohol and No tobacco Quit smoking 2 years ago Exam alert, oriented x 3, clear to auscultation bilaterally and regular rate & rhythm Airway Submandibular: within normal limits Cervical ROM: within normal limits Mallampati: Class I Dentition: full Comments: Comments: Large okeefe Anesthetic Plan ASA status: 2 Anesthesia: General and Regional (specify below) Other: No prior issues with anesthesia NPO since yesterday evening Prior smoker, quit 2 years ago Occasional GERD, diet controlled Denies any cardiac issues Labs reviewed acceptable for procedure METs greater than 4 Plan for general anesthesia with preop nerve block Medications/Allergies Home Medications ?Medication ?Instructions ?Recorded ?Confirmed ?Last Taken ?Type No Known Home Medications 06/22/24 06/22/24 Unknown History Allergies Allergy/AdvReac Type Severity Reaction Status Date / Time No Known Allergies Allergy Verified 06/16/24 12:08 Current Medications Generic Name Dose Route Start Last Admin Trade Name Freq PRN Reason Stop Dose Admin Sodium Chloride 1,000 mls @ 30 mls/hr 06/22/24 10:00 06/23/24 06:47 Sodium Chloride 0.9% IV 06/23/24 09:59 30 mls/hr .Q24H MARCELINO Administration PFSH Anesthesia Medical History Helicobacter pylori gastritis Surgical History Hx of vasectomy Spring 2023 Hx laparoscopic cholecystectomy 10/17/22 History of esophagogastroduodenoscopy (EGD) Hx of colonoscopy H/O knee surgery Meniscus tear Social History Smoking and tobacco/nicotine status: former use of tobacco/nicotine Alcohol intake: current Alcohol intake frequency: holidays/special occasions only Substance/Drug Use: never Current occupation: [employer] Data Anesthesia Cardiac Studies: No Data to Display
--- NOTE | 2024-06-23 06:55 | ANES.PROC ---
Anesthesia Procedures Procedure/Date: 06/23/24 Nerve Block ^: Nerve Block 1: Main Anesthesia: other (100 mcg fentanyl and 2 mg Versed) Time Out Performed: Yes Consent: requested by attending/covering physician and from patient Nerve block location: interscalene Anesthesia monitors applied: pulse oximetry, EKG, BP cuff and oxygen Nerve block position: supine Anesthetic Used: ropivicaine 0.5% Amount of anesthesia used (mL): 30 Ultrasound used to: recognize landmarks Nerve Stimulator Used?: Yes Interscalene/Femoral BLK: other needle (pjunk 4inch) Injection: neg aspiration of heme Patient Tolerated Procedure: well Complications: none Additional Comments: Decadron 4 mg added to block
--- NOTE | 2024-06-23 06:59 | PC.NURSE ---
0635: time out and shoulder block performed using ultrasound guidance by NERI,30 ml of 0.5% ropivicaine injected, patient tolerated well
[2024-06-23] MEDS: ceFAZolin 2,000 mg SDV 2000 MG IVP (07:02)
--- NOTE | 2024-06-23 09:21 | PM.OP ---
Operative Report Date of procedure: June 23, 2024 Surgeon: Dakota Mercer MD Procedure: Preop diagnosis: Internal derangement right shoulder Postop diagnosis: SLAP lesion of the right shoulder, hypertrophic bursa right shoulder, acromial impingement AC joint arthrosis Procedure: Diagnostic right shoulder arthroscopy with debridement and repair of labral tear/SLAP tear. Acromioplasty, bursectomy, AC joint decompression Surgeon: Dakota Mercer MD Anesthesia: General With preoperative scalene block EBL: 20 cc Complications: None Indications: Mario is a 33-year-old white male who has had right shoulder pain for quite some time now. He said pain and difficulty. He has been a active weightlifter but this is gradually diminished secondary to pain in his right shoulder. He has difficulty with overhead activities and doing a push-up type position. He has difficulty sleeping due to a pain in his shoulder. She has felt he more likely had a labral tear and subsequent MRI is confirmed this by my personal review of the MRI. Therefore at this time patient was offered a diagnostic shoulder arthroscopy with all indicated procedures. All risk benefits treatment alternatives were discussed with the patient he was willing to proceed with surgical intervention at this time. Procedure: After obtaining written consent patient had scalene block administered in preop holding area. Patient is then taken to the operating room placed on the upper table supine position and general anesthetic administered. Once good anesthesia was achieved patient was placed up in a beachchair position and padded appropriately. Right shoulder and arm were prepped and draped usual fashion. After surgical timeout standard posterior portals made with #11 blade and camera cannulas placed within the glenohumeral joint line. Initially noted that there is fraying and tearing about the insertion of the biceps tendon and anterior to it and posterior to it as well as tearing of the labrum away from the glenoid. Anterior working portal was made just inferior to the clavicle. Using mechanical shaver debridement of the labrum was done as well as debridement of the edge of the glenoid at its insertion point. Further probing the area found the above-stated injury. At this time a second anterior inferior working portal was placed. Using 1.5 mm juggerknots anchor was sutures were placed in a stepwise fashion to repair the labrum arthroscopically. A total of 3 anchors were placed. After fixation probing the area demonstrated good fixation of the labrum and biceps back to the glenoid. Further debridement of the area was also done with mechanical shaver. The remainder of the shoulder is in good repair with anterior glenohumeral ligament intact as well as biceps hiatus and the rotator cuff insertion. Counters and reposition his subacromial space. A second working port was placed just lateral to the acromion. Using sterile probe as well as mechanical shaver bursectomy was undertaken. Hypertrophic bursa was found throughout the subacromial space. Identification of the AC joint as well as the anterior acromial hook were identified. Using a 5 5 number arthroscopically decompression of the AC joint was undertaken as well as acromioplasty. Once adequate decompression been achieved shoulders washed coachman sterile irrigation. All cannulas removed to this point. 3-0 Prolene interrupted and horizontal mattress sutures were used to close these forms. Wounds are clean and dry dressed with a Adaptic dressing sterile gauze dressing ABDs and adhesive tape. Patient placed abduction pillow and sling and awakened. Patient was then transferred to recovery room in stable condition
--- NOTE | 2024-06-23 10:33 | ANE.PACU2 ---
Inpatient post-anesthesia follow up: Airway intact: Yes Vital signs: Temperature 97 F Pulse Rate 67 Respiratory Rate 18 Blood Pressure 118/76 Pulse Oximetry 99 Oxygen Delivery Me thod Room Air Oxygen Flow Rate 6 Fraction of Inspir ed Oxygen Hydration adequate: Yes Nausea and vomiting: No Pain level: 1 Mental status: Baseline
== END 2024-06-23 10:33 | disposition home or self-care (01) ==
PROVIDERS: PCP Family Medicine; Visit Provider Orthopaedic Surgery
PROC: (CPT 29805; principal; 2024-06-23 07:00)
DX: S43.431A Superior glenoid labrum lesion of right shoulder, initial encounter (principal); M75.41 Impingement syndrome of right shoulder; M19.011 Primary osteoarthritis, right shoulder; Z90.49 Acquired absence of other specified parts of digestive tract; Z87.891 Personal history of nicotine dependence; K21.9 Gastro-esophageal reflux disease without esophagitis; X58.XXXA Exposure to other specified factors, initial encounter
CPT/HCPCS: 29807; 29826; C1713; J0330; J0690; J1100; J1171; J2250; J2371; J2405; J2704; J3010; J3490; J7030

== ENCOUNTER 2024-07-28 13:25 | Outpatient (RCR) | payer BC, SELFPAY | END 2024-08-02 23:59 | disposition home or self-care (01) | LOC: SPT 13:25 | PROVIDERS: Visit Provider Orthopaedic Surgery | DX: Z98.890 Other specified postprocedural states (principal) | CPT/HCPCS: 97110; 97161 ==

== ENCOUNTER 2024-08-06 15:48 | Outpatient (RCR) | payer BC, SELFPAY | END 2024-09-01 23:59 | disposition home or self-care (01) | LOC: SPT 15:48 | PROVIDERS: PCP Family Medicine; Visit Provider Orthopaedic Surgery | DX: Z98.890 Other specified postprocedural states (principal) | CPT/HCPCS: 97110 ==

== ENCOUNTER 2024-09-02 05:00 | Outpatient (RCR) | payer BC, SELFPAY | END 2024-10-02 23:59 | disposition home or self-care (01) | LOC: SPT 05:00 | PROVIDERS: PCP Family Medicine; Visit Provider Orthopaedic Surgery | DX: Z98.890 Other specified postprocedural states (principal) | CPT/HCPCS: 97110 ==

== ENCOUNTER → 2024-09-03 09:49 | Outpatient (BNVA) | payer BC, SELFPAY | PROVIDERS: PCP Family Medicine; Visit Provider Family Medicine Adult Medicine | DX: R39.9 Unspecified symptoms and signs involving the genitourinary system (principal) | CPT/HCPCS: 81000 ==

== ENCOUNTER 2024-10-03 06:30 | Outpatient (RCR) | payer BC, SELFPAY | END 2024-10-05 08:05 | disposition home or self-care (01) | LOC: SPT 06:30 | PROVIDERS: PCP Family Medicine; Visit Provider Orthopaedic Surgery | DX: Z98.890 Other specified postprocedural states (principal) | CPT/HCPCS: 97110 ==

== ENCOUNTER → 2025-03-28 08:32 | Outpatient (BNVA) | payer BC, SELFPAY | PROVIDERS: PCP Family Medicine; Visit Provider Family Medicine | DX: Z00.00 Encounter for general adult medical examination without abnormal findings (principal); Z51.81 Encounter for therapeutic drug level monitoring; Z13.1 Encounter for screening for diabetes mellitus; Z13.6 Encounter for screening for cardiovascular disorders; E55.9 Vitamin D deficiency, unspecified; R53.81 Other malaise; R53.83 Other fatigue; E53.8 Deficiency of other specified B group vitamins | CPT/HCPCS: 80053; 80061; 82306; 82607; 83036; 84403; 84439; 84443; 85025 ==